=== PATIENT | male | born 1995 | race African-American/Black ===

== ENCOUNTER 2021-08-12 08:26 | Emergency (ER) | payer BC ==
[2021-08-12 09:32] LABS: CORONAVIRUS COVID-19 NAA NEGATIVE (NEGATIVE)
--- NOTE | 2021-08-12 09:36 | EDM.PDOC ---
ED HPI GENERAL MEDICAL PROBLEM - General Chief Complaint: Headache Stated Complaint: STOMACH AND CHEST PAIN, CHILLS AND FEVER Time Seen by Provider: 08/12/21 09:35 Source of Information: Reports: Patient History Limitations: Reports: No Limitations - History of Present Illness INITIAL COMMENTS - FREE TEXT/NARRATIVE: PT HAS BEEN ILL SINCE WITH A HEADACHE, MILD NAUSEA, SORE THROAT ON THE RT. hE HAS HAD A FEVER. hE HAS BEEN CHILLING. Onset: Gradual, Other ( THIS HAS BEEN GOING ON SINCE . ) Duration: Hour(s): Location: Reports: Head, Neck, Generalized Associated Symptoms: Reports: Fever/Chills, Headaches Right Throat Pain Score (Numeric/FACES): 6 - Related Data Allergies Allergy/AdvReac Type Severity Reaction Status Date / Time No Known Allergies Allergy Verified 08/12/21 08:47 Home Meds: Home Meds NK [No Known Home Meds] 08/12/21 [History] Past Medical History - Past Health History Medical/Surgical History: Denies Medical/Surgical History Social & Family History - Tobacco Use Tobacco Use Status *Q: Never Tobacco User - Caffeine Use Caffeine Use: Reports: None - Recreational Drug Use Recreational Drug Use: No ED ROS GENERAL - Review of Systems Review Of Systems: See Below Constitutional: Reports: Fever, Chills, Malaise HEENT: Reports: Throat Pain Respiratory: Reports: Cough Cardiovascular: Reports: No Symptoms Endocrine: Reports: No Symptoms GI/Abdominal: Reports: Abdominal Pain, Nausea : Reports: No Symptoms Musculoskeletal: Reports: No Symptoms Skin: Reports: No Symptoms - Physical Exam Exam: See Below Text/Narrative:: pt has a fever chills, chest discomfort. Exam Limited By: No Limitations General Appearance: Alert, Anxious Ears: Normal TMs Nose: Normal Inspection Throat/Mouth: Other (pt has redness of the rt tonsil with gandular swelling. ) Head Exam: Atraumatic Neck: Normal Inspection Respiratory/Chest: No Respiratory Distress Cardiovascular: Regular Rate, Rhythm GI/Abdominal: Soft, Non-Tender (Male) Exam: Deferred Rectal (Males) Exam: Deferred Neuro Exam (Abbreviated): Alert, Oriented, Normal Cognition Back Exam: Normal Inspection Extremities: Normal Inspection Course - Vital Signs Last Recorded V/S: Last Vital Signs Temp 36.5 C 08/12/21 08:45 Pulse 91 08/12/21 08:45 Resp 12 08/12/21 08:45 BP 131/86 08/12/21 08:45 Pulse Ox 96 08/12/21 08:45 - Orders/Labs/Meds Orders: Active Orders 24 hr Category Date Time Status CULTURE STREP A CONFIRMATION [RM] Stat Lab 08/12/21 09:44 Results STREP SCRN A RAPID W CULT CONF [RM] Stat Lab 08/12/21 09:44 Results cefTRIAXone [Rocephin] 1 gm Med 08/12/21 11:19 Active Sodium Chloride 0.9% [Normal Saline AdvBag] 50 ml IV ONETIME Isolation [COMM] Stat Oth 08/12/21 08:54 Ordered Medication Orders Ceftriaxone Sodium 1 gm/ (Sodium Chloride) 50 mls @ 100 mls/hr IV ONETIME ONE Stop: 08/12/21 11:48 Labs: Laboratory Tests 08/12/21 08/12/21 08/12/21 Range/Units 08:53 09:52 09:52 WBC 19.1 H (4.5-11.0) K/uL RBC 5.02 (4.30-5.90) M/uL Hgb 14.8 (12.0-15.0) g/dL Hct 43.1 (40.0-54.0) % MCV 86 (80-98) fL MCH 30 (27-31) pg MCHC 34 (32-36) % Plt Count 285 (150-400) K/uL Neut % (Auto) 82.5 H (36-66) % Lymph % (Auto) 7.1 L (24-44) % [place] % (Auto) 10.1 H (2-6) % Eos % (Auto) 0.2 L (2-4) % Baso % (Auto) 0.1 (0-1) % Sodium 136 L (140-148) mmol/L Potassium 3.4 L (3.6-5.2) mmol/L Chloride 96 L (100-108) mmol/L Carbon Dioxide 31 (21-32) mmol/L Anion Gap 12.4 (5.0-14.0) mmol/L BUN 12 (7-18) mg/dL Creatinine 1.4 H (0.8-1.3) mg/dL Est Cr Clr Drug Dosing 81.36 mL/min Estimated GFR (MDRD) > 60 (>60) Glucose 103 (74-106) mg/dL Calcium 9.0 (8.5-10.1) mg/dL Total Bilirubin 0.8 (0.2-1.0) mg/dL AST 20 (15-37) U/L ALT 32 (12-78) U/L Alkaline Phosphatase 72 (46-116) U/L C-Reactive Protein (0.0-0.3) mg/dL Total Protein 8.1 (6.4-8.2) g/dL Albumin 3.3 L (3.4-5.0) g/dL Globulin 4.8 H (2.3-3.5) g/dL Albumin/Globulin Ratio 0.7 L (1.2-2.2) Urine Color (YELLOW) Urine Appearance (CLEAR) Urine pH (5.0-8.0) Ur Specific [place] (1.008-1.030) Urine Protein (NEGATIVE) mg/dL Urine Glucose (UA) (NEGATIVE) mg/dL Urine Ketones (NEGATIVE) mg/dL Urine Occult Blood (NEGATIVE) Urine Nitrite (NEGATIVE) Urine Bilirubin (NEGATIVE) Urine Urobilinogen (0.2-1.0) EU/dL Ur Leukocyte Esterase (NEGATIVE) Urine RBC (0-5) Urine WBC (0-5) Ur Epithelial Cells Amorphous Sediment Urine Bacteria Urine Mucus Influenza Type A RNA Negative (NEGATIVE) RSV RNA (INAAT) Negative (NEGATIVE) Influenza Type B RNA Negative (NEGATIVE) SARS-CoV-2 RNA (VIVIAN) Negative (NEGATIVE) 08/12/21 08/12/21 Range/Units 10:11 11:18 WBC (4.5-11.0) K/uL RBC (4.30-5.90) M/uL Hgb (12.0-15.0) g/dL Hct (40.0-54.0) % MCV (80-98) fL MCH (27-31) pg MCHC (32-36) % Plt Count (150-400) K/uL Neut % (Auto) (36-66) % Lymph % (Auto) (24-44) % [place] % (Auto) (2-6) % Eos % (Auto) (2-4) % Baso % (Auto) (0-1) % Sodium (140-148) mmol/L Potassium (3.6-5.2) mmol/L Chloride (100-108) mmol/L Carbon Dioxide (21-32) mmol/L Anion Gap (5.0-14.0) mmol/L BUN (7-18) mg/dL Creatinine (0.8-1.3) mg/dL Est Cr Clr Drug Dosing mL/min Estimated GFR (MDRD) (>60) Glucose (74-106) mg/dL Calcium (8.5-10.1) mg/dL Total Bilirubin (0.2-1.0) mg/dL AST (15-37) U/L ALT (12-78) U/L Alkaline Phosphatase (46-116) U/L C-Reactive Protein 35.56 H (0.0-0.3) mg/dL Total Protein (6.4-8.2) g/dL Albumin (3.4-5.0) g/dL Globulin (2.3-3.5) g/dL Albumin/Globulin Ratio (1.2-2.2) Urine Color Yellow (YELLOW) Urine Appearance Clear (CLEAR) Urine pH 6.0 (5.0-8.0) Ur Specific [place] 1.020 (1.008-1.030) Urine Protein 100 H (NEGATIVE) mg/dL Urine Glucose (UA) Negative (NEGATIVE) mg/dL Urine Ketones Trace H (NEGATIVE) mg/dL Urine Occult Blood Trace-intact H (NEGATIVE) Urine Nitrite Negative (NEGATIVE) Urine Bilirubin Negative (NEGATIVE) Urine Urobilinogen 1.0 (0.2-1.0) EU/dL Ur Leukocyte Esterase Negative (NEGATIVE) Urine RBC 0-5 (0-5) Urine WBC Not seen (0-5) Ur Epithelial Cells Not seen Amorphous Sediment Not seen Urine Bacteria Not seen Urine Mucus Moderate Influenza Type A RNA (NEGATIVE) RSV RNA (INAAT) (NEGATIVE) Influenza Type B RNA (NEGATIVE) SARS-CoV-2 RNA (VIVIAN) (NEGATIVE) Meds: Medications Generic Name Dose Route Start Last Admin Trade Name Freq PRN Reason Stop Dose Admin Ceftriaxone Sodium 1 gm/ 50 mls @ 100 mls/hr 08/12/21 11:19 Sodium Chloride IV 08/12/21 11:48 ONETIME ONE Discontinued Medications Generic Name Dose Route Start Last Admin Trade Name Freq PRN Reason Stop Dose Admin Ketorolac Tromethamine 30 mg 08/12/21 09:46 Ketorolac 30 Mg/Ml Sdv IM 08/12/21 09:47 ONETIME ONE Ketorolac Tromethamine 60 mg 08/12/21 09:47 08/12/21 09:56 Ketorolac 30 Mg/Ml Sdv IM 08/12/21 09:48 60 mg ONETIME ONE Administration Lidocaine HCl 5 ml 08/12/21 11:28 Lidocaine 1% 5 Ml Sdv INJECT 08/12/21 11:29 ONETIME ONE Ondansetron HCl 4 mg 08/12/21 09:45 08/12/21 09:57 Ondansetron 4 Mg Tab.Dis PO 08/12/21 09:46 4 mg ONETIME ONE Administration Oxycodone/Acetaminophen 1 tab 08/12/21 10:48 08/12/21 11:17 Acetaminophen/Oxycodone 325-5 Mg Tab PO 08/12/21 10:49 1 tab ONETIME ONE Administration - Re-Assessments/Exams Free Text/Narrative Re-Assessment/Exam: 08/12/21 11:27 [place] [id number]. He has a high crp. His covid is neg. He has a patch of pneumonia on the rt lower area. His strept was neg. He was given rocephen 1 gm im. 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 RTC IF NOT IMPROVING. use tylenol and motrin for headache. Sepsis Event Note (ED) - Evaluation Sepsis Screening Result: No Definite Risk - Focused Exam Vital Signs: Vital Signs Temp Pulse Resp BP Pulse Ox 08/12/21 08:45 36.5 C 91 12 131/86 96 - My Orders Last 24 Hours: My Active Orders 08/12/21 08:54 Isolation [COMM] Stat 08/12/21 09:44 CULTURE STREP A CONFIRMATION [] Stat STREP SCRN A RAPID W CULT CONF [RM] Stat 08/12/21 11:19 cefTRIAXone [Rocephin] 1 gm Sodium Chloride 0.9% [Normal Saline AdvBag] 50 ml IV ONETIME - Assessment/Plan Last 24 Hours: My Active Orders 08/12/21 08:54 Isolation [COMM] Stat 08/12/21 09:44 CULTURE STREP A CONFIRMATION [RM] Stat STREP SCRN A RAPID W CULT CONF [RM] Stat 08/12/21 11:19 cefTRIAXone [Rocephin] 1 gm Sodium Chloride 0.9% [Normal Saline AdvBag] 50 ml IV ONETIME
[2021-08-12] MEDS ORDERED: Ondansetron 4 MG Tab.DIS PO ONE (09:45)
[2021-08-12] MEDS ORDERED: Ketorolac 30 MG/ML SDV IM ONE ×2 (09:46→09:47)
[2021-08-12] MEDS ORDERED: Acetaminophen/oxyCODONE 325-5 MG Tab PO ONE (10:48)
--- NOTE | 2021-08-12 11:11 | CRLCR ---
For Patients: As a result of the Century Cures Act, medical imaging exams and procedure reports are released immediately into your electronic medical record. You may view this report before your referring provider. If you have questions, please contact your health care provider. INDICATION: Chest discomfort. TECHNIQUE: Portable AP chest regressed. COMPARISON: None available. FINDINGS: Low lung volumes with vascular crowding. Heterogeneous right basilar opacities. No pneumothorax or pleural effusion. Cardiac/mediastinal contours are within normal limits. IMPRESSION: Low volume study. Right basilar heterogeneous opacities may reflect atelectasis, pneumonitis, and/or infection. Dictated by Colt Rodriguez MD @ 08/12/2021 11:10:51 AM Dictated by: Colt Rodriguez MD @ 08/12/2021 11:10:57 (Electronically Signed)
[2021-08-12] MEDS ORDERED: cefTRIAXone 1 GM in Sodium Chloride 0.9% 50 ML IV ONE (11:19)
== END 2021-08-12 12:49 | disposition home or self-care (01) ==
LOC: JP.ED 08:26
DX: J18.9 Pneumonia, unspecified organism (principal); Z20.822 Contact with and (suspected) exposure to COVID-19
CPT/HCPCS: 0241U; 36415; 71045; 80053; 81001; 85025; 86140; 87081; 87880; 96365; 96372; 99284; A9270; J0696; J1885

== ENCOUNTER 2021-08-14 17:29 | Emergency (ER) | payer BC ==
--- NOTE | 2021-08-14 18:17 | EDM.PDOC ---
ED HPI GENERAL MEDICAL PROBLEM - General Chief Complaint: General Stated Complaint: CHILLS, HEADACHE, FATIGUE Time Seen by Provider: 08/14/21 18:15 Source of Information: Reports: Patient History Limitations: Reports: No Limitations - History of Present Illness INITIAL COMMENTS - FREE TEXT/NARRATIVE: 26-year-old male was seen in the emergency room 2 days ago, was diagnosed with a small right lower lobe pneumonia and started on Augmentin. He still is having some cough, generalized body aches and fatigue and is wondering if he is ready to go back to work yet. He does feel he is improving, no shortness of breath or fever. Duration: Day(s): (Has been sick for 5 days) Worsens with: Reports: Other (Activity causes fatigue and shortness of breath) Associated Symptoms: Reports: Cough, Shortness of Breath - Related Data Allergies Allergy/AdvReac Type Severity Reaction Status Date / Time No Known Allergies Allergy Verified 08/14/21 18:01 Home Meds: Home Meds Amoxicillin/Potassium Clav [Amox Tr-K Clv 875-125 mg Tab] 1 each PO BID 08/14/21 [History] Ondansetron [Zofran ODT] 4 mg PO ASDIRECTED PRN 08/14/21 [History] Past Medical History - Past Health History Medical/Surgical History: Denies Medical/Surgical History Social & Family History - Tobacco Use Tobacco Use Status *Q: Never Tobacco User - Caffeine Use Caffeine Use: Reports: None - Recreational Drug Use Recreational Drug Use: No ED ROS GENERAL - Review of Systems Review Of Systems: See Below Constitutional: Reports: Malaise, Weakness. Denies: Fever, Chills HEENT: Denies: Throat Pain Respiratory: Reports: Shortness of Breath, Cough Cardiovascular: Denies: Chest Pain GI/Abdominal: Denies: Nausea, Vomiting Musculoskeletal: Reports: Muscle Pain Skin: Reports: No Symptoms Neurological: Reports: No Symptoms ED EXAM, GENERAL - Physical Exam Exam: See Below Exam Limited By: No Limitations General Appearance: Alert, No Apparent Distress, Other (Vitals are completely normal, he is afebrile and shows no increased respiratory effort or distress) Eye Exam: Bilateral Eye: Normal Inspection Head: Atraumatic Respiratory/Chest: No Respiratory Distress, Lungs Clear Neurological: Alert, Oriented Psychiatric: Normal Affect, Normal Mood Skin Exam: Warm, Dry Course - Vital Signs Last Recorded V/S: Last Vital Signs Temp 97.8 F 08/14/21 18:08 Pulse 81 08/14/21 18:08 Resp 16 08/14/21 18:08 BP 146/96 H 08/14/21 18:08 Pulse Ox 96 08/14/21 18:08 - Re-Assessments/Exams Free Text/Narrative Re-Assessment/Exam: 08/14/21 18:29 Reviewed his recent ER visit, apparently there was a small infiltrate in the right lower lobe and he is on Augmentin. He seems to be improving, his vitals are stable, his lungs are clear and he is tolerating the medication. I wrote him a work note for 2 more days, then he should try to resume regular activity or recheck at the clinic if not improving satisfactorily. Departure - Departure Time of Disposition: 18:38 Disposition: Home, Self-Care 01 Clinical Impression: Pneumonia Qualifiers: Pneumonia type: due to unspecified organism Laterality: right Lung location: lower lobe of lung Qualified Code(s): J18.9 - Pneumonia, unspecified organism - Discharge Information Instructions: Community-Acquired Pneumonia, Adult Referrals: PCP,None [Primary Care Provider] - Forms: ED Department Discharge Care Plan Goals: Continue your medications, get rest and fluids for the next 2 days and return to work on Saturday as scheduled. If you feel you are unable to return to work, recheck at the clinic to establish a primary provider to discuss other issues such as your blood pressure. Sepsis Event Note (ED) - Evaluation Sepsis Screening Result: No Definite Risk - Focused Exam Vital Signs: Vital Signs Temp Pulse Resp BP Pulse Ox 08/14/21 18:08 97.8 F 81 16 146/96 H 96 08/14/21 17:49 97.8 F 81 16 146/96 H 96
== END 2021-08-14 18:39 | disposition home or self-care (01) ==
LOC: JP.ED 17:29
DX: J18.9 Pneumonia, unspecified organism (principal)
CPT/HCPCS: 99283